=== PATIENT | female | born 1940 | race Caucasian/White ===

== ENCOUNTER → 2017-06-27 | Outpatient (CLI) | payer MEDICARE, BC ==
[~2017-06-27] MED LIST: LIDOCAINE VISC 2% SOLN 15 ML UDC ONE; MUPIROCIN 2% OINT 22 GM TUBE ONE
--- NOTE | 2017-06-27 12:28 | Diagnostic Imaging Report ---
PROCEDURE:X-RAY RIGHT WRIST, COMPLETE COMPARISON:None. INDICATIONS:FALL FINDINGS: Mild osteopenia, which limits evaluation of the bony structures. No acute, displaced fracture or dislocation. Joint spaces are relatively well-preserved. No lytic or blastic lesions. Questionable soft tissue swelling in the thenar region. CONCLUSION: No acute displaced fracture or dislocation. Possible soft tissue swelling in the thenar region. Ronaldo Iraheta M.D. Dictated by: Ronaldo Iraheta M.D. on 06/27/2017 at 12:37 Electronically approved by: Ronaldo Iraheta M.D. on 06/27/2017 at 12:37
== END ==
LOC: EDSTATUS 12:01 → RAD 12:02
PROVIDERS: ATTEND Family Medicine Adult Medicine
DX: S60.811A Abrasion of right wrist, initial encounter (principal); L08.89 Other specified local infections of the skin and subcutaneous tissue; B96.89 Other specified bacterial agents as the cause of diseases classified elsewhere
CPT/HCPCS: 11042; 73110; G0463

== ENCOUNTER 2017-07-02 09:16 | Outpatient (RCR) | payer MEDICARE, BC | END 2017-07-31 | LOC: WCC 09:16 | PROVIDERS: ATTEND Family Medicine Adult Medicine | DX: S60.811A Abrasion of right wrist, initial encounter (principal); L08.89 Other specified local infections of the skin and subcutaneous tissue; B96.89 Other specified bacterial agents as the cause of diseases classified elsewhere ==

== ENCOUNTER 2017-10-25 06:40 | Observation (INO) | payer MEDICARE, BC ==
[~2017-10-25] VITALS: Ht 162.6 cm; Wt 84.6 kg
--- OUTSIDE RECORDS SUMMARY | 2017-10-25 06:42 | XMS REPORT | Continuity of Care Document ---
Author Author [facility] Organization [facility] Address [address] [place] [address] Phone Unavailable Care Team Providers Care Security Monitor Name Role Phone MADDIE ARANDA MD PCP Insurance Providers Guarantor Yasemin Kearney Address [facility] [address] [place] [address] Payer [facility] Policy Number [id number] Subscriber's Name Everardo Kearney Relationship 01 Group Number [id number] Group Name [id number] Effective Date 11 Payer Medicare A & B Policy Number [id number] Subscriber's Name Yasemin Kearney Relationship 18 Self / Same As Patient Group Name RETIRED Effective Date 06 Advance Directives Directive Response Recorded Date/Time Does the patient have an advance directive? No 08/03/16 9:29am If yes, is advance directive on file with [facility]? No 03/04/09 6:50pm If not on file with [facility] will patient provide a copy? No 01/05/16 7:28am Do you have a Directive to Physician? No 06/28/17 1:56pm Do you have a Medical Power of [place]? No 06/28/17 1:56pm Do you have an out of hospital Do Not Resuscitate Order? No 06/28/17 1:56pm Do you have any special needs we should be aware of? No 06/28/17 1:56pm Do you have a support person here with you today? No 06/28/17 1:56pm Did patient receive Notice of Privacy Practices? Yes 06/28/17 1:56pm Did patient receive patient rights and responsibilities? Yes 06/28/17 1:56pm Problems No problem information available. Medications No medication information available. Social History Social History Problem Response Recorded Date/Time Onset Date Status Hx Psychiatric Problems No 03/08/2009 2:32am Not Applicable Not Applicable Hospital Discharge Instructions No hospital discharge instruction information available. Plan of Care Prescriptions See Medication Section Functional Status No functional status information available. Allergies, Adverse Reactions, Alerts Allergen Type Severity Reaction Status Last Updated No Known Drug Allergies Allergy Unknown Active 03/08/09 Immunizations No immunization information available. Vital Signs No vital sign information available. Results No relevant diagnostic test, laboratory data and/or discharge summary information available. Procedures No procedure information available. Encounters Encounter Location Arrival/Admit Date Discharge/Depart Date Attending Provider Discharged Recurring [facility] Patients [facility] 07/02/17 9:16am 07/31/17 11:59pm MATEO TAFOYA MD Registered Clinic [facility] 06/27/17 12:02pm MATEO TAFOYA MD
--- OUTSIDE RECORDS SUMMARY | 2017-10-25 06:42 | XMS REPORT ---
Author Author [facility] Address Unknown Phone Unavailable Care Team Providers Care Oracle Consultant Name Role Phone MATEO TAFOYA Unavailable Unavailable Problems This patient has no known problems. Allergies, Adverse Reactions, Alerts This patient has no known allergies or adverse reactions. Medications This patient has no known medications. Results Test Description Test Time Test Comments Text Results Atomic Results Result Comments WRIST COMPLETE RIGHT [place] [address] Patient Name: KWESI KEARNEY MR #: [id number] : 1940 Age/Sex: 77/F Req #: [id number] Adm Physician: Ordered by: MATEO TAFOYA MD Report #: [id number] Location: [facility] Room/Bed: Procedure: [id number] DX/WRIST COMPLETE RIGHT Exam Date: Exam Time: REPORT STATUS: Signed PROCEDURE: X-RAY RIGHT WRIST , COMPLETE COMPARISON: None. INDICATIONS: FALL FINDINGS: Mild osteopenia, which limits evaluation of the bony structures. No acute, displaced fracture or dislocation. Joint spaces are relatively well- preserved. No lytic or blastic lesions. Questionable soft tissue swelling in the thenar region. CONCLUSION: No acute displaced fracture or dislocation. Possible soft tissue swelling in the thenar region. Abilio Iraheta M.D. Dictated by: Abilio Iraheta M.D. on 06/27/2017 at 12:37 Electronically approved by: Abilio Iraheta M.D. on 2016 at 12:37 Dictated By: ABILIO IRAHETA MD 1237 Transcribed By: ROXANNA on 1237 COPY TO: MATEO TAFOYA MD
[2017-10-25 07:03] LABS: BASOPHILS # (AUTO) 0.1 (0.0-0.1); BASOPHILS % 0.6 % (0.0-1.0); EOSINOPHILS # (AUTO) 0.2 (0.0-0.4); EOSINOPHILS % 2.2 % (0.0-6.0); HEMATOCRIT 38.5 % (34.2-44.1); HEMOGLOBIN 12.7 g/dL (12.0-16.0); LYMPHOCYTES # (AUTO) 2.8 (1.0-3.2); LYMPHOCYTES % 36.5 % (18.0-39.1); MEAN CORPUSCULAR HEMOGLOBIN 28.7 pg (28-32); MEAN CORPUSCULAR VOLUME 87.1 fL (81-99); MONOCYTES # (AUTO) 0.5 (0.2-0.8); MONOCYTES % 6.1 % (4.4-11.3); NEUTROPHILS # (AUTO) 4.2 (2.1-6.9); NEUTROPHILS % 54.3 % (38.7-80.0); PLATELET COUNT 360 x10e3/uL (140-360); RED BLOOD COUNT 4.42 x10e6/uL (3.6-5.1)
[2017-10-25] MEDS ORDERED: LISINOPRIL-HCT1 EACH PO (07:06)
[2017-10-25] MEDS ORDERED: NEXIUM40 MG PO (07:06)
[2017-10-25] MEDS ORDERED: CO Q-10 (07:08)
[2017-10-25] MEDS ORDERED: MULTI-VITAMIN1 EACH PO (07:08)
[2017-10-25 07:22] LABS: ALANINE AMINOTRANSFERASE 14 IU/L (0-55); ALBUMIN 3.4 g/dL (3.5-5.0); ALKALINE PHOSPHATASE 68 IU/L (40-150); ANION GAP 12.3 mmol/L (8-16); BLOOD UREA NITROGEN 15 mg/dL (7-26); BUN/CREATININE RATIO 19 (6-25); CALCIUM 9.6 mg/dL (8.4-10.2); CARBON DIOXIDE 27 mmol/L (22-29); CHLORIDE 104 mmol/L (98-107); CREATINE KINASE 131 IU/L (29-168); CREATININE, SERUM 0.81 mg/dL (0.57-1.11); EST GLOMERULAR FILTRATION RATE > 60 ML/MIN (60-); GLUCOSE 119 mg/dL (74-118); POTASSIUM 4.3 mmol/L (3.5-5.1); SODIUM 139 mmol/L (136-145)
[2017-10-25] MEDS ORDERED: SODIUM CHLORIDE 0.9% 1000ML 1,000 ML IV STA (07:41)
[2017-10-25] MEDS ORDERED: MECLIZINE HCL 12.5 MG TAB PO ONE (07:45)
[2017-10-25 08:04] LABS: INR 1.06
[2017-10-25 08:11] LABS: BILIRUBIN,URINE NEGATIVE (NEGATIVE); CLARITY,URINE SL CLOUDY (CLEAR); COLOR,URINE YELLOW (YELLOW); KETONES,URINE NEGATIVE (NEGATIVE); LEUKOCYTE ESTERASE ,URINE TRACE (NEGATIVE); NITRITE,URINE NEGATIVE (NEGATIVE); PROTEIN,URINE DIPSTICK NEGATIVE (NEGATIVE); URINE UROBILINOGEN 0.2 mg/dL (0.2 - 1)
[2017-10-25] MEDS ORDERED: ONDANSETRON HCL 4 MG ORAL DISINTEGRATING TAB PO PRN (08:15)
[2017-10-25] MEDS ORDERED: MECLIZINE HCL 12.5 MG TAB PO PRN (08:15)
--- NOTE | 2017-10-25 08:16 | Diagnostic Imaging Report ---
PROCEDURE: CHEST SINGLE (PORTABLE) COMPARISON: None. INDICATIONS: DIZZY, WEAKNESS FINDINGS: LUNGS: No consolidations or edema. PLEURA: No effusions or pneumothorax. HEART \T\ MEDIASTINUM: The heart is within normal size-limits. BONES \T\ SOFT TISSUES: No acute findings. CONCLUSION: No acute thoracic abnormality. Jakob Valle D.O. Dictated by: Jakob Valle D.O. on 10/25/2017 at 8:17 Electronically approved by: Jakob Valle D.O. on 10/25/2017 at 8:17
--- NOTE | 2017-10-25 08:49 | Diagnostic Imaging Report ---
Exam: Head CT without contrast History: Dizziness, syncope Comparison studies: None Technique: Axial images were obtained from the skull base to the vertex. Coronal and sagittal images reconstructed from the axial data. Intravenous contrast: None Findings: Scalp: No abnormalities. Bones: No fractures, blastic or lytic lesions. Brain sulci: Appropriate for age. Ventricles: Normal in size and configuration. No hydrocephalus. Extra-axial spaces: No masses, no fluid collection. Parenchyma: A few subtle hypodensities in the supratentorial white matter are nonspecific but may reflect mild chronic small vessel ischemic changes. No masses, acute hemorrhage or acute or chronic cortical vascular insults. Sellar/suprasellar region: Mostly CSF filled sella, a nonspecific finding. Craniocervical junction: Patent foramen magnum. No Chiari one malformation. Incidental findings: Atherosclerotic calcifications in the carotid siphons. IMPRESSION: 1. No acute intracranial abnormalities. 2. Mild chronic microvascular ischemic changes. Signed by: Dr. Jude Marsh M.D. on 10/25/2017 8:45 AM
[2017-10-25 09:00] LABS: BACTERIA,URINE RARE /HPF; EPITHELIAL CELLS,URINE FEW /LPF
[2017-10-25 10:45] VITALS: BP 157/82
[2017-10-25] MEDS: ASPIRIN 81 MG ENTERIC COATED PO SCH (11:03)
[2017-10-25 14:42] VITALS: BP 157/82
[2017-10-25 14:46] VITALS: BP 157/82
[2017-10-25 14:59] LABS: CREATINE KINASE 105 IU/L (29-168)
[2017-10-25 16:21] VITALS: BP 120/72
[2017-10-25] MEDS ORDERED: POTASSIUM CHLO10 ME1 PO (16:41)
--- NOTE | 2017-10-25 16:52 | Diagnostic Imaging Report ---
EXAMINATION: Brain MRI and MR angiogram of the [place] of [place] and Neck without contrast CLINICAL HISTORY: Dizziness, vertigo. COMPARISON: Head CT on 10/25/2017 TECHNIQUE: Brain: Sagittal T2; axial DWI, T2, FLAIR, T1-IR, T2 gradient echo; coronal FLAIR. MRAs: 3D TOF and 2D-TOF images were obtained of the brain and neck. BRAIN MRI FINDINGS: Parenchyma: 1. Focal FLAIR hyperintensity in the anterior aspect of the left superior cerebellum without restricted diffusion at this time, however there is no significant associated volume loss, which indicates likely subacute evolution of ischemic infarct. 2. Small chronic lacunar infarct in the left central cerebellum. 3. A few white matter chronic microvascular ischemic changes, likely age-related minimal chronic microvascular ischemic changes. 4. No mass, hemorrhage, acute or chronic infarcts. Skull: Unremarkable. Vessels: Expected flow voids present in the major arteries and dural sinuses. Extra-axial spaces: No abnormal signal intensity or mass effect. Brain volume: Within normal limits for age. Ventricles: No hydrocephalus or displacement. Foramen magnum: Unremarkable. Sella: Enlarged, partially, mostly CSF filled. Paranasal / mastoid sinuses: No significant inflammatory disease. MRA OF THE [place] OF [place] : Asymmetry of the intracranial internal carotid arteries, the left is larger than right, which may represent a variation of anatomy. The distal internal carotid, distal vertebral, basilar, and cerebral arteries are patent. No significant stenosis, occlusion, aneurysm, or arteriovenous malformation is seen. Anatomic variation: Anterior Communicating Artery: Patent Posterior Communicating Arteries: Patent bilaterally, origin origin of the right PICA. Vertebral arteries: Codominant Prominent infundibulum at the origin of the left posterior communicating artery. MRA OF THE NECK: If present, stenosis of the carotid bulbs is measured based on NASCET criteria i.e area of maximum stenosis compared to the cervical ICA distal to the bulb. Aortic arch and origin of the vessels: Unremarkable. Right Carotid Artery: The common carotid, carotid bulb, internal and external carotid arteries at the level of the neck are normal in caliber, and patent, no evidence of stenoses. Left Carotid Artery: The common carotid, carotid bulb, internal and external carotid arteries at the level of the neck are normal in caliber, and patent, no evidence of stenoses. Vertebral Arteries: Both are normal in morphology and caliber. Both are codominant. No significant stenosis is seen. IMPRESSION: 1. Likely subacute ischemic infarct in the left superior cerebellum. 2. Mild chronic microvascular ischemic changes. 3. Small chronic left cerebellum infarct. 4. Normal MR angiogram of the head and neck. Particularly no major vessel occlusion or hemodynamically significant stenosis is seen. Signed by: Dr. Sanaz Leone M.D. on 10/25/2017 4:48 PM
[2017-10-25] MEDS ORDERED: AMLODIPINE BESYLATE 5 MG TAB PO ONE (18:15)
[2017-10-25 20:00] VITALS: BP 143/87
[2017-10-25] MEDS: ATORVASTATIN 20 MG TAB PO SCH (21:06)
[2017-10-25] MEDS: SODIUM CHLORIDE 0.9% 1000ML 1,000 ML IV SCH (21:06)
[2017-10-25 23:00] VITALS: BP 115/67
[2017-10-26] VITALS (7 sets, daily range): BP systolic 105–137; BP diastolic 58–91
[2017-10-26 01:10] LABS: CREATINE KINASE MB 1.5 ng/mL (0-5.0)
[2017-10-26 06:34] LABS: BASOPHILS # (AUTO) 0.1 (0.0-0.1); BASOPHILS % 0.8 % (0.0-1.0); EOSINOPHILS # (AUTO) 0.2 (0.0-0.4); EOSINOPHILS % 2.4 % (0.0-6.0); HEMATOCRIT 34.3 % (34.2-44.1); HEMOGLOBIN 11.4 g/dL (12.0-16.0); LYMPHOCYTES # (AUTO) 2.3 (1.0-3.2); MEAN CORPUSCULAR HEMOGLOBIN 28.9 pg (28-32); MEAN CORPUSCULAR HGB CONC 33.2 g/dL (31-35); MEAN CORPUSCULAR VOLUME 87.1 fL (81-99); MONOCYTES # (AUTO) 0.5 (0.2-0.8); MONOCYTES % 7.9 % (4.4-11.3); NEUTROPHILS # (AUTO) 3.3 (2.1-6.9); NEUTROPHILS % 51.7 % (38.7-80.0); PLATELET COUNT 304 x10e3/uL (140-360); RED BLOOD COUNT 3.94 x10e6/uL (3.6-5.1)
[2017-10-26 06:58] LABS: ALANINE AMINOTRANSFERASE 11 IU/L (0-55); ALBUMIN 2.9 g/dL (3.5-5.0); ALKALINE PHOSPHATASE 57 IU/L (40-150); ANION GAP 9.1 mmol/L (8-16); BLOOD UREA NITROGEN 12 mg/dL (7-26); BUN/CREATININE RATIO 18 (6-25); CALCIUM 8.6 mg/dL (8.4-10.2); CARBON DIOXIDE 24 mmol/L (22-29); CHLORIDE 111 mmol/L (98-107); CHOL/HDL RATIO 4.1 (3.0-3.6); CHOLESTEROL 169 MD/DL (0-199); CREATININE, SERUM 0.68 mg/dL (0.57-1.11); EST GLOMERULAR FILTRATION RATE > 60 ML/MIN (60-); GLUCOSE 100 mg/dL (74-118); HDL CHOLESTEROL 41 MG/DL (40-60); LDL CHOLESTEROL 102 MG/DL (60-130); POTASSIUM 4.1 mmol/L (3.5-5.1); SODIUM 140 mmol/L (136-145); TRIGLYCERIDES 129 MG/DL (0-149)
[2017-10-26 07:20] LABS: FREE THYROXINE INDEX 1.9312 (1.4-3.8); THYROID STIMULATING HORMONE 1.487 uIU/mL (0.350-4.940)
[2017-10-26] MEDS: SODIUM CHLORIDE 0.9% 1000ML 1,000 ML IV SCH ×2 (08:48→17:40)
[2017-10-26] MEDS ORDERED: PANTOPRAZOLE SOD 40 MG TABEC PO SCH (09:00)
[2017-10-26] MEDS ORDERED: HYDROCHLOROTHIAZIDE 25 MG TAB PO SCH (09:00)
[2017-10-26] MEDS ORDERED: LISINOPRIL 20 MG TAB PO SCH (09:00)
[2017-10-26] MEDS ORDERED: POTASSIUM CHLORIDE 10 MEQ TABCR PO SCH (09:00)
[2017-10-26] MEDS ORDERED: MULTIVITAMINS/MINERALS TAB PO SCH (09:00)
[2017-10-26] MEDS: ASPIRIN 81 MG ENTERIC COATED PO SCH (09:27)
--- NOTE | 2017-10-26 12:14 | Cardiology Report ---
DATE OF STUDY: October 25, 2017 ECHOCARDIOGRAM M-MODE: Dilated left atrium. Left ventricular hypertrophy. Normal contractility. Normal mitral aortic valves. No pericardial effusion. SECTOR SCAN: Dilated left atrium. Left ventricular hypertrophy. Normal contractility. Ejection fraction is approximately 70%. Mitral aortic and tricuspid valves are grossly normal. No pericardial effusion. CARDIAC DOPPLER STUDY WITH COLOR: One + mitral regurgitation. Trace aortic tricuspid and pulmonic regurgitation. CONCLUSIONS: 1. Left ventricular hypertrophy with ejection fraction of approximately 70%. 2. Mild mitral regurgitation with dilated left atrium. 3. Trace tricuspid, pulmonic and aortic regurgitations. Job#: [id number]
[2017-10-26 13:45] LABS: CREATINE KINASE 87 IU/L (29-168)
--- NOTE | 2017-10-26 14:45 | Consultation ---
DATE OF CONSULTATION: October 26, 2017 NEUROLOGY CONSULT HISTORY OF PRESENT ILLNESS: Ms. Pratt is a 77 y.o. R hand dominant woman with past medical history significant for hypertension who presented to [facility] on October 25, 2017 with dizziness. On the morning of October 25, 2017, the patient was standing in the shower, washing her hair, when she experienced the sudden onset of dizziness which she further describes as a vertiginous sensation. There was no blurred vision, nausea, vomiting, or headache associated with the vertigo. The patient does not report a visual field cut or other disturbance, dysarthria , aphasia, facial droop, weakness, or numbness associated with the vertigo. Ms. Pratt reports grabbing onto the shower door and wall until she could seat herself on a stool in the shower. The patient reached for her cellular phone, which was nearby, and called her daughter. Her daughter immediately came to the home and helped her mother from the shower. Ms. Pratt reports an unsteady gait and a sensation of imbalance while walking. Her daughter called , and the patient was transported to the emergency center at [facility] for further evaluation and treatment. In the emergency center, the patient underwent a CT of the brain without contrast which did not show evidence of recent large territorial ischemia, hemorrhage, mass, or mass effect. Ms. Pratt was admitted to the hospital under observation status for further evaluation and treatment of her symptoms. While in the emergency center and hospital, the patient's symptoms gradually resolved. Ms. Pratt reports she is asymptomatic at this time. The patient has not experienced similar symptoms previously. Ms. Pratt was not receiving antiplatelet therapy prior to this admission. REVIEW OF SYSTEMS: Intermittent diarrhea, impaired balance and gait, vertigo, and tinnitus. Otherwise, the 12-point review of systems is negative. PAST MEDICAL HISTORY: Hypertension. PAST SURGICAL HISTORY: Cholecystectomy, partial hysterectomy, back surgery, appendectomy, tonsillectomy. PAST HOSPITALIZATIONS: For surgeries and procedures listed, childbirth twice. FAMILY HISTORY: The patient's paternal and maternal grandparents are . The patient's maternal grandmother from a stroke. She had diabetes mellitus as well. The other medical histories are unknown. The patient's father is from a car accident. The patient's mother is from a hemorrhagic stroke. The patient had 1 sibling, a brother, who in the same car accident as their father. Ms. Pratt has 2 daughters, both of whom are healthy. The patient reports a maternal aunt from a stroke. She had bipolar disorder as well. The patient had a maternal uncle who is . He had developmental delay. SOCIAL HISTORY: The patient is . She is a college graduate. 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 The patient does not report current or prior tobacco, alcohol, or recreational drug use. HOME MEDICATIONS: Lisinopril-hydrochlorothiazide, Nexium 40 mg by mouth daily, multivitamin, Coenzyme Q10, B complex supplements. ALLERGIES: NO KNOWN DRUG ALLERGIES. NO KNOWN FOOD ALLERGIES. NO KNOWN ALLERGIES TO LATEX. NO KNOWN ALLERGIES TO IODINE OR OTHER CONTRAST MATERIALS. PHYSICAL EXAMINATION VITAL SIGNS: Height 64 inches, weight 186.5 pounds. BMI 32.0 kg per meter squared. Blood pressure 105/58 mmHg, pulse 55 beats per minute, respiratory rate 18 breaths per minute, oxygen saturation 98% on room air. GENERAL: The patient is awake and alert, does not appear distressed. Mildly obese. HEENT: Normocephalic, atraumatic. Pupils are equal, round, and reactive to light. Moist mucous membranes. NECK: Supple. No appreciable thyromegaly. No appreciable carotid bruits. CARDIOVASCULAR: S1, S2, regular rate and rhythm. No murmurs, rubs, or gallops. RESPIRATORY: Clear to auscultation bilaterally. No wheezes, rhonchi, or rales. EXTREMITIES: The skin is warm and dry. No clubbing, cyanosis, or edema. The posterior tibial and dorsalis pedis pulses are 2+ and symmetric. SKIN: No rashes or lesions. NEUROLOGIC Memory/Attention: The patient is awake and alert, oriented to person, place, time, and situation. Cranial Nerves: Cranial nerve 1--Not tested. Cranial nerve 2, 3, 4 and 6--Pupils are equal and round, react briskly to light (from 4 mm to 2 mm). Extraocular movements intact. No nystagmus. Cranial nerve 5--Sensation to light touch and pinprick is intact in the bilateral V1 through V3 distributions. Strength of the temporalis and masseter muscles is within normal limits. Cranial nerve 7--The face is symmetric, as are all facial movements. Strength is within normal limits. Cranial nerve 8--Hearing is intact to finger rub bilaterally. Cranial nerve 9, 10--The soft palate elevates equally and symmetrically. Cranial nerve 11--Normal strength of the bilateral sternocleidomastoid and trapezius muscles. Cranial nerve 12--The tongue protrudes midline and moves symmetrically from side to side. Strength: Bulk is normal and strength is 5/5 in the bilateral deltoids, biceps, triceps, wrist flexors and extensors, finger flexors and extensors, intrinsic hand muscles, hip flexors, knee flexors and extensors, ankle dorsiflexion and plantarflexion, and intrinsic foot muscles. Tone is normal. DTRs: Deep tendon reflexes are 2+ and symmetric at the triceps, biceps, brachioradialis, patellas, and Achilles. Plantar responses are flexor bilaterally. Absent clonus. Sensation: Sensation is intact to light touch and pinprick in both arms and both legs. Cerebellar: [id number]-yptufm and heel-swanson movements are intact without dysmetria or other impairment. Rapid alternating movements are intact. Gait: Spontaneous gait is normal. Speech: Spontaneous speech is normal without appreciable dysarthria or aphasia. Repetition is intact. Involuntary Movements: None. Pronator Drift: None. LABORATORY DATA: Sodium 140, potassium 4.1, chloride 111, dioxide 24, anion gap 9.1, BUN 12, creatinine 0.68, estimated GFR greater than 60, BUN to creatinine ratio 18, glucose 100, calcium 8.6. Total bilirubin 0.4, AST 14, ALT 11, alkaline phosphatase 57. Total protein 5.7, albumin 2.9, globulin 2.8, albumin to globulin ratio 1.0. Creatinine kinase 131, 105, 84. CK-MB 2.40, 1.90, 1.50. Troponin I less than 0.001, less than 0.001, 0.001. Total cholesterol 169, triglycerides 129, LDL cholesterol 102, HDL cholesterol 41. TSH 1.487, free T4 index 1.9312, thyroxine 710, T3 uptake 27.20. The CBC with differential and platelets reveals a white blood cell count of 6.30 with a normal differential. The hemoglobin and hematocrit are 11.4 and 34.3, respectively. The platelet count is 304. PT 13.0, INR 1.06, PTT 29.0. A urinalysis revealed trace blood, trace leukocyte esterase, 6 to 10 white blood cells, and rare urine bacteria. DIAGNOSTIC STUDIES EKG October 25, 2017: Sinus bradycardia at [address] of the brain without contrast October 25, 2017: On my review, there is no large territorial ischemia, hemorrhage, mass, or mass effect. MRI of the brain without contrast October 25, 2017: On my review, there is a subacute ischemic stroke in the left superior cerebellar hemisphere. There is a remote ischemic stroke in the left cerebellum as well. Scattered foci of T2/FLAIR hyperintensities compatible with mild chronic small-vessel ischemic disease. MRA of the brain and neck October 25, 2017: Normal. Echocardiogram October 25, 2017: Normal left ventricular systolic function with an ejection fraction of 60% to 65%. Left ventricular hypertrophy. Left atrial enlargement. Mild mitral regurgitation and tricuspid regurgitation. ASSESSMENT AND PLAN: Ms. Pratt is a 77-year-old R hand dominant woman with past medical history significant for hypertension, admitted to [facility] with vertigo, unsteady gait, and impairment of balance. As part of her evaluation, the patient underwent a MRI of the brain without contrast which revealed a subacute ischemic stroke in the left superior cerebellum. Fortunately for the patient, her symptoms gradually resolved during this hospitalization. At present, her neurological examination is nonfocal. The patient's laboratory data and other diagnostic studies have been reviewed and are documented above. Ms. Pratt experienced a recent stroke secondary to small-vessel ischemic disease. Her stroke evaluation is complete. Recommendations are as follows: 1. Aspirin 81 mg by mouth daily for stroke prophylaxis. 2. The patient's goal blood pressure is less than 140/90 mmHg. The patient's blood pressures are at goal. Continue with current antihypertensive medication. 3. The patient's goal total cholesterol is less than 200 with an LDL of less than 70. Ms. Pratt's total cholesterol is less than 200, but her LDL is elevated at 102. Continue treatment with recently prescribed atorvastatin 40 mg by mouth at bedtime daily. 4. Order hemoglobin A1c. 5. The patient does not endorse current tobacco use. No intervention is required. 6. The patient's spontaneous gait is steady. A physical therapy evaluation is not necessary. 7. The patient may be discharged to home. Follow up in my office in 2 weeks. Thank you for this consultation. Time spent: 50 minutes. ADDENDUM: Shortly before discharge, the patient's was found to be in atrial fibrillation on continuous cardiac monitoring. Stroke prophylaxis with Aspirin was discontinued, and Ms. Pratt was prescribed Eliquis by the primary attending. Job#: [id number] [id number]
[2017-10-26] MEDS ORDERED: METOPROLOL TARTRATE 25 MG TAB PO SCH (17:00)
[2017-10-26] MEDS ORDERED: APIXAB 2.5 MG TABLET PO SCH (17:00)
[2017-10-26] MEDS: ATORVASTATIN 20 MG TAB PO SCH (21:48)
[2017-10-27] VITALS: BP 107/62
[2017-10-27 05:30] VITALS: BP 114/60
[2017-10-27] MEDS ORDERED: METOPROLOL TARTRATE 25 MG TAB PO SCH (09:00)
== END 2017-10-27 07:44 | disposition home or self-care (01) ==
LOC: ER 06:40 → ERHOLD 09:07 → IMCU 09:17
PROVIDERS: ADMIT Family Medicine; ATTEND Family Medicine
DX: I63.542 Cerebral infarction due to unspecified occlusion or stenosis of left cerebellar artery (principal); R42 Dizziness and giddiness; R94.31 Abnormal electrocardiogram [ECG] [EKG]; E78.5 Hyperlipidemia, unspecified; K21.9 Gastro-esophageal reflux disease without esophagitis; I10 Essential (primary) hypertension; R26.81 Unsteadiness on feet; I48.91 Unspecified atrial fibrillation; Z79.01 Long term (current) use of anticoagulants
CPT/HCPCS: 36415 ×2; 70450; 70544; 70547; 70551; 71045; 80053 ×2; 80061; 81001; 82550 ×2; 82553 ×2; 82607; 83036; 83735; 84436; 84443; 84479; 84484 ×2; 85025 ×2; 85610; 85730; 87086; 93005 ×2; 93306; 99284; G0378 ×3; J7030 ×2

== ENCOUNTER → 2018-12-11 | Outpatient (CLI) | payer MEDICARE, BC ==
[~2018-12-11] MED LIST changes: +CO Q-10; -LIDOCAINE VISC 2% SOLN 15 ML UDC ONE; +LISINOPRIL-HCT1 EACH PO; +MULTI-VITAMIN1 EACH PO; -MUPIROCIN 2% OINT 22 GM TUBE ONE; +NEXIUM40 MG PO; +POTASSIUM CHLO10 ME1 PO
--- NOTE | 2018-12-12 07:25 | Diagnostic Imaging Report ---
History: Right hip and leg pain, lumbar radiculopathy Comparison studies: Prior lumbar spine MRI of 01/05/2016 is unavailable on the PACS for comparison. Technique: Sagittal and axial T2 , sagittal T1 and IR, axial spin density oblique and coronal T2. Intravenous contrast: None Findings: Number of lumbar vertebral bodies: 5. Alignment: Normal lumbar lordosis. Mild lumbar curvature convex to the right with apex at L4-L5. Soft tissues: Postsurgical changes in the dorsal lumbar soft tissues centered at L3-L4. No T2 hyperintense inflammatory changes. Paraspinal muscles: No signal abnormalities. Well-preserved. No atrophic changes Lower thoracic cord: Normal in signal and morphology. The tip of the conus terminates at the superior L1 level. Cauda equina: No masses. No arachnoiditis. Vertebrae: No compression fracture or infection. Incidental T1 hyperintense T12 vertebral body hemangioma. No other neoplasm. Degenerative changes: L1-L2: Mildly degenerated disc. Asymmetric left disc bulge does not result in significant canal or foraminal stenosis. L2-L3: Mildly degenerated disc. Asymmetric left disc bulge and mildly thickened ligamentum flavum result results in minimal canal stenosis. No significant foraminal stenosis. L3-L4: Mildly degenerated disc. Minimal anterolisthesis of L3 on L4 with associated uncovered disc/disc bulge, superimposed 6 mm right central/subarticular disc extrusion and moderate moderate facet arthrosis with moderate canal stenosis, narrowing of the bilateral subarticular recesses and moderate bilateral foraminal stenosis. Surgical changes of prior laminotomy. L4-L5: Moderately degenerated disc. Disc osteophyte complex, thickened ligamentum flavum and bilateral facet arthrosis with mild canal stenosis,, severe left foraminal stenosis and moderate right foraminal stenosis. L5-S1: Moderately degenerated disc with mild reactive endplate edema on the left. Minimal retrolisthesis of L5 on S1 with disc osteophyte complex and facet arthrosis with mild canal stenosis, narrowing of the subarticular recesses and severe left and moderate right foraminal stenosis. Additional findings: At least two T2 hyperintense cysts in the left kidney, one of which measures 3.2 cm in the left superior pole. The second cyst is incompletely imaged in the left inferior pole measures at least 3.3 cm. There are bilateral peripelvic renal cysts vs. fullness of the bilateral renal collecting systems. IMPRESSION: 1. Multilevel disc degeneration, greatest/moderate at L4 and L5-S1. 2. Small right central disc extrusion with moderate canal stenosis and prior laminotomy at L3-4. 3. Multilevel degenerative foraminal stenosis; moderate bilaterally at L3-L4, and severe left and moderate right at L4-L5 and L5-S1). 4. Multilevel facet arthrosis, greatest/moderate at L3-L4. 5. Left renal cysts with bilateral peripelvic cysts vs. renal collecting system fullness which could be further evaluated by renal ultrasound. Signed by: Dr. Jude Marsh M.D. on 12/12/2018 7:21 AM
== END ==
LOC: MRI 16:32
PROVIDERS: ATTEND Family Medicine
DX: M54.16 Radiculopathy, lumbar region (principal)
CPT/HCPCS: 72148

== ENCOUNTER → 2021-03-14 | Outpatient (CLI) | payer MEDICARE, BC | LOC: MAMMO 09:26 | PROVIDERS: ATTEND Family Medicine | DX: Z12.31 Encounter for screening mammogram for malignant neoplasm of breast (principal) | CPT/HCPCS: 77067 ==

== ENCOUNTER 2025-02-26 15:00 | Outpatient (RCR) | payer MEDICARE, BC | END 2025-02-28 | LOC: PT 15:00 | PROVIDERS: ATTEND Neurological Surgery | DX: M47.892 Other spondylosis, cervical region (principal) ==

== ENCOUNTER 2025-03-12 14:56 | Outpatient (RCR) | payer MEDICARE, BC | END 2025-03-30 | LOC: PT 14:56 | PROVIDERS: ATTEND Neurological Surgery | DX: M47.892 Other spondylosis, cervical region (principal) ==